=== PATIENT | male | born 1995 | race Caucasian/White ===

== ENCOUNTER 2021-04-09 17:20 | Emergency (ER) | payer SELFPAY ==
[~2021-04-09] VITALS: Ht 180.3 cm; Wt 113.4 kg
[2021-04-09 17:21] VITALS: BP 156/80
[2021-04-09] MEDS ORDERED: BACTRIM 160MG/800MG DS TAB PO ONE (19:00)
[2021-04-09] MEDS ORDERED: BACT800T5 PO (19:04)
== END 2021-04-09 19:24 | disposition home or self-care (01) ==
LOC: M ED 17:20
DX: L73.9 Follicular disorder, unspecified (principal)

== ENCOUNTER 2024-11-01 19:27 | Emergency (ER) | payer SELFPAY ==
[~2024-11-01] VITALS: Ht 182.9 cm; Wt 100.0 kg
[~2024-11-01 19:27] MED LIST: ACET-861 PO; AMOX875T2 PO; BACT800T5 PO; CLIN-250 PO; IBUP-359 PO; KETO-204 PO
[2024-11-01] MEDS: AMPICILLIN SOD/SULBACTAM SOD 3 GM in DEXTROSE 5% (D5W) MINI-BAG PLU 100 ML IV ONE (21:56)
[2024-11-02 01:00] VITALS: BP 125/77; TEMP 98.6; O2SAT 97
== END 2024-11-02 01:18 | disposition home or self-care (01) ==
LOC: M ED 19:27
DX: G89.18 Other acute postprocedural pain (principal); Z98.818 Other dental procedure status; Z79.1 Long term (current) use of non-steroidal anti-inflammatories (NSAID); Z79.2 Long term (current) use of antibiotics
CPT/HCPCS: 36415; 87040; 96365; 96366; 99284; J0295